=== PATIENT | female | born 2005 | race Hispanic/Latino ===

== ENCOUNTER 2025-01-16 09:44 | Outpatient (CLI) | payer SELFPAY ==
--- NOTE | ~2025-01-16 | XR_ITS ---
Thoracic spine: Clinical Indication: Back pain AP and lateral views were performed. No fracture is seen. There is normal alignment of the vertebrae. The intervertebral disc spaces appe ar normal. Paravertebral soft tissues appear normal. Impression: No significant abnormalities noted. Reviewed, dictated and finalized at [facility]. Impression: No significant abnormalities noted.
--- NOTE | ~2025-01-16 | XR_ITS ---
Left Shoulder Technique: AP and scapular Y views were obtained. Clinical History: Pain Findings: No fracture or dislocation is seen. Osseous alignment is anatomic. The glenohumeral and acr omioclavicular joint spaces are preserved. Soft tissues are unremarkable. Impression: Unremarkable left shoulder radiographs. Reviewed, dictated and finalized at [facility]. Impression: Unremarkable left shoulder radiographs.
== END 2025-01-16 09:45 | disposition home or self-care (01) ==
PROVIDERS: PCP Chiropractor Rehabilitation; Visit Provider Chiropractor Rehabilitation
DX: M25.512 Pain in left shoulder (principal); M54.9 Dorsalgia, unspecified
CPT/HCPCS: 72070; 73030